=== PATIENT | female | born 1945 | race Caucasian/White ===

== ENCOUNTER 2022-12-02 09:48 | Outpatient (CLI) | payer MEDICARE, SELFPAY ==
--- NOTE | 2022-12-02 10:59 | W.ANESCHARGE ---
Anesthesia Charges Start Date/Time Anesthesia Start Date: 12/02/22 Anesthesia Start Time: 11:33 Stop Date/Time Anesthesia Stop Date: 12/02/22 Anesthesia Stop Time: 12:21 Summary Extremes of Age - Over 70 or under 1: MDA
--- NOTE | 2022-12-02 12:24 | P.ANES_ITS ---
Anesthesia Charges Start Date/Time Anesthesia Start Date: 12/02/22 Anesthesia Start Time: 11:33 Stop Date/Time Anesthesia Stop Date: 12/02/22 Anesthesia Stop Time: 12:21 Summary Extremes of Age - Over 70 or under 1: [employer]
== END 2022-12-02 09:49 | disposition home or self-care (01) ==
LOC: OP CLINIC 09:52
PROVIDERS: PCP Family Medicine; Visit Provider Surgery
DX: Z86.010 Personal history of colon polyps (principal); K64.9 Unspecified hemorrhoids; K63.5 Polyp of colon; K57.30 Diverticulosis of large intestine without perforation or abscess without bleeding
CPT/HCPCS: 00811; 45381; 45385; 88305; 99100; J2371; J2704; J3490